=== PATIENT | female | born 1945 ===

== ENCOUNTER 2024-09-05 06:49 | Day surgery (SDC) | payer OTHER ==
[2024-08-30 11:09] VITALS: BP 146/80
[~2024-09-05] VITALS: Ht 157.5 cm; Wt 68.0 kg
[~2024-09-05 06:49] MED LIST: GLIPIZIDE XL5 MG PO; TOPROL XL25 M1
[2024-09-05] MEDS ORDERED: POVIDONE-IODINE 118 ML BOTT TOP ONE (08:21)
[2024-09-05] MEDS ORDERED: CHLORHEXIDINE GLUCONATE 120 ML BOTTLE TOP ONE (08:21)
[2024-09-05] MEDS ORDERED: CEFAZOLIN SODIUM 1,000 MG VIAL ONE (08:21)
[2024-09-05] MEDS ORDERED: MACROBID 100 M100 MG PO (10:17)
[2024-09-05] MEDS ORDERED: TRAM1TAB98 PO (10:18)
== END 2024-09-05 12:25 | disposition home or self-care (01) ==
LOC: CIR.AMB 06:49
PROVIDERS: ATTEND Obstetrics & Gynecology Gynecology
DX: N81.5 Vaginal enterocele (principal); N81.6 Rectocele